=== PATIENT | female | born 1980 | race Hispanic/Latino ===

== ENCOUNTER 2016-07-02 20:33 | Emergency (ER) | payer OTHER ==
[~2016-07-02] VITALS: Ht 152.4 cm; Wt 56.8 kg
[~2016-07-02 20:33] MED LIST: FES300 PO; PREN1TAB69 PO
[2016-07-02 20:38] VITALS: BP 122/79; PULSE 105; RESP 16; O2SAT 99
[2016-07-02] MEDS ORDERED: OMEP20CA11 PO (20:46)
[2016-07-02] MEDS ORDERED: 0.9% Sodium Chloride 1,000 ML IV ONE ×2 (20:56→21:40)
[2016-07-02] MEDS ORDERED: Ondansetron 2 mg/mL 2 mL Inj IVPUSH ONE (21:00)
[2016-07-02 21:19] LABS: BASOPHILS % (AUTO) 0.2 % (0-3); EOSINOPHILS % (AUTO) 0.2 % (0-5); MONOCYTES % (AUTO) 5.1 % (4-12); Mean Corpuscular Hemoglobin 30.6 pg (27.0-35.0); Mean Corpuscular Volume 91.4 fL (81-100); NEUTROPHILS % (AUTO) 89.9 % (40-74); Platelet Count 189 bil/L (150-400)
[2016-07-02 21:24] LABS: APPEARANCE,URINE HAZY (CLEAR,HAZY); COLOR,URINE YELLOW (YELLOW); PH,URINE 5.5 (5.0-8.0)
[2016-07-02 21:25] LABS: OCCULT BLOOD,URINE MODERATE (NEGATIVE); UROBILINOGEN,URINE NORMAL (NORMAL)
--- NOTE | 2016-07-02 21:39 | ED.REPORT ---
HPI-Abd Pain F Under 42 Date of Service Jul 02, 2016 ED Provider: Fran Snowden MD Pt is a healthy 36 y/o female presenting to the ED c/o constant diffuse cramping abdominal pain and persistent diarrhea onset this morning. She c/o associated chills. Pt denies bloody stool, fever, CP, SOB, nausea, vomiting. Her pain is not exacerbated or relieved by anything. Patient states that she has had contacts at work with similar illnesses. She reports a lot of stress recently due to being involved in a divorce. Nursing Notes Stated Complaint: DIARRHEA Chief Complaint: Female Abdominal Pain Nursing Notes Reviewed: Yes Allergies: Coded Allergies: No Known Allergies (Verified , 07/02/16) Scheduled Loperamide (Loperamide) 2 Mg Capsule 2 MG PO Q4H Omeprazole (Omeprazole) 20 Mg Capsule.dr 20 MG PO DAILY Scheduled PRN Ondansetron ODT (Zofran ODT) 4 Mg Tablet 4 MG PO Q4H PRN PRN For Nausea General Time Seen by MD: 20:56 Chief Complaint Abdominal pain, Diarrhea moderate Hx Obtained From: Patient Arrived By: Walk-in Sudden in Onset?: No Onset Occurred: 5 - 8 hours ago Symptom Duration: Since onset Progression since Onset: Constant Location: : Diffuse Quality: Cramping Radiation: : Does not radiate Severity: Current: Mild Severity: Maximum: Moderate Similar Sx Previous: No Past Medical History Past Medical History Healthy Past Surgical History Denies Smoking History Unknown if Ever Smoker Ambulatory Status Independent Review of Systems Constitutional: Denies: Chills, Fever Respiratory: Denies: Non-productive cough, Shortness of breath Cardiovascular: Denies: Chest pain, Dyspnea on exertion GI: Reports: Abdominal pain, Diarrhea, Denies: Bloody/tarry stool, Hematochezia, Nausea, Vomiting Complete sys rev & neg: except as marked. Physical Exam Initial Vital Signs Vital Signs (First) Date Time Temp Pulse Resp B/P Pulse Ox O2 Delivery O2 Flow Rate FiO2 07/02/16 20:38 36.4 105 16 122/79 99 Room Air Initial VS: Reviewed Head / Eyes: Atraumatic, Normocephalic, PERRL Neck: Supple, Full range of motion Extremities: Vascular intact, Neuro intact, No swelling, No tenderness Skin: Warm, Dry, No cyanosis Neurologic: Alert, Oriented, Nonfocal Psychiatric: Mood/affect normal, Behavior normal, Normal thought content General/Constitutional: Awake, Alert, No acute distress, Cooperative, Not toxic appearing Respiratory / Chest: Atraumatic, Breath sounds NL, Breath sounds = bilat, No respiratory distress, No rales, No rhonchi, No wheezing, No retractions, No stridor, No chest tenderness, No chest wall deformity, No crepitus Cardiovascular: Heart rate NL, Regular rhythm, Heart sounds NL, No gallop, No murmurs, No rubs, Cap refill not delayed, Peripheral circulation NL Abdomen: Atraumatic, Soft, Non-tender, No guarding, No rebound, No distention, No palpable mass Back: Full range of motion, Painless range of motion ENT: Atraumatic, Airway patent Mouth: Positive: Mucous membranes dry Interpretation & Diagnostics Lab Results Interpretation Result Diagram: 07/02/16210407/02/162104 Test 07/02/16 21:02 07/02/16 21:05 Urine Color Yellow (YELLOW) Urine Appearance Hazy (CLEAR,HAZY) Urine pH 5.5 (5.0-8.0) Urine Specific [place] 1.030 (1.003-1.035) Urine Protein Negativemg/dL (NEG,TRACE) Urine Glucose (UA) Negativemg/dL (NEGATIVE) Urine Ketones 40mg/dL (NEGATIVE) Urine Occult Blood Moderate (NEGATIVE) Urine Nitrite Negative (NEGATIVE) Urine Bilirubin Negative (NEGATIVE) Urine Urobilinogen Normalmg/dL (NORMAL) Urine Leukocyte Esterase Negative (NEGATIVE) Urine RBC 0-2/hpf (0-2) Urine WBC 0-5/hpf (0-5) Urine Epithelial Cells Few/hpf (NONE-MOD) Urine Crystals None seen (NONE SEEN) Urine Bacteria Few/hpf (NONE-FEW) Urine Hyaline Casts None/lpf (NONE) Urine Granular Casts None seen (NONE SEEN) Urine Waxy Casts None seen (NONE SEEN) Urine Red Blood Cell Casts None seen (NONE SEEN) Urine White Blood Cell Casts None seen (NONE SEEN) Urine Mucus Present (None Seen) Urine Trichomonas None seen (NONE SEEN) Urine Yeast None (NONE SEEN) Urinalysis Comment None Urine Culture Reflexed Not indicated Hold Urine Received (Received) White Blood Count 11.7th/mm3 (3.8-10.1) Red Blood Count 4.54mil/mm3 (3.90-5.20) Hemoglobin 13.9g/dL (12.0-15.6) Hematocrit 41.5% (35.0-46.0) Mean Corpuscular Volume 91.4fL (81-100) Mean Corpuscular Hemoglobin 30.6pg (27.0-35.0) Mean Corpuscular Hemoglobin Concent 33.5% (32.0-37.0) Red Cell Distribution Width 12.7% (12.3-15.4) Platelet Count 189bil/L (150-400) Neutrophils (%) (Auto) 89.9% (40-74) Lymphocytes (%) (Auto) 4.3% (14-46) Monocytes (%) (Auto) 5.1% (4-12) Eosinophils (%) (Auto) 0.2% (0-5) Basophils (%) (Auto) 0.2% (0-3) Sodium Level 136mEq/L (134-144) Potassium Level 3.8mEq/L (3.5-5.2) Chloride Level 100mEq/L (97-108) Carbon Dioxide Level 19mmol/L (18-29) Blood Urea Nitrogen 14mg/dL (6-20) Creatinine 0.58mg/dL (0.57-1.00) Estimat Glomerular Filtration Rate 170mL/min (>59) Glucose Level 112mg/dL (60-99) Calcium Level 9.4mg/dL (8.5-10.1) Magnesium Level 2.1mg/dL (1.6-2.6) Total Bilirubin 0.5mg/dL (0.0-1.2) Aspartate Amino Transf (AST/SGOT) 28U/L (0-50) Alanine Aminotransferase (ALT/SGPT) 18U/L (0-32) Alkaline Phosphatase 68U/L (25-150) Total Protein 7.9g/dL (6.4-8.4) Albumin 5.0g/dL (3.4-5.0) Lipase 40U/L (13-60) Hold [place]ak[place] Top Tube Received (Received) Re-Eval/Medical Decision Med Decision/Clinical Course Pt is a healthy 36 y/o female presenting to the ED c/o constant diffuse cramping abdominal pain and persistent diarrhea onset this morning. She c/o associated chills. Pt denies bloody stool, fever, CP, SOB, nausea, vomiting. Her pain is not exacerbated or relieved by anything. Patient states that she has had contacts at work with similar illnesses. She reports a lot of stress recently due to being involved in a divorce. Here in the emergency department the patient was briefly febrile with a temperature of 30 80 otherwise hemodynamically stable and afebrile. Abdominal examination was benign. Meds given: Ibuprofen, Zofran, IV fluids, Loperamide, 0.5 mg IV Ativan Thereafter patient reported complete symptom resolution. Labs notable as below: Upreg: neg CBC: Leukocytosis of 11.7 otherwise unremarkable CMP: Unremarkable UA: unconvincing for UTI Overall presentation was consistent with gastroenteritis. No evidence of bacterial process. No findings suggestive of acute surgical intra-abdominal process. I do not feel that imaging studies are indicated. Symptoms have now been well-controlled. Patient will be discharged with a prescription for loperamide and Zofran. Follow and return precautions were reviewed in detail and she was discharged in good condition. Re-Evaluation/Progress : Time of Eval: 22:05 Patient Status: Mild relief Re-Evaluation/Progress Note: Pt rechecked. Informed pt of plan for treatment. Pt understands and agrees with plan for treatment. F/U instructions and RTER warnings given. All questions addressed. Counseled Regarding: Diagnosis, Lab results, Need for follow-up, When/why to return to ED Discharge & Departure Primary Impression: Gastroenteritis Additional Impressions: Diarrhea Dehydration Acute situational disturbance Leukocytosis Leukocytosis type: unspecified Qualified Code: D72.829 - Elevated white blood cell count, unspecified Disposition: Home Discharge Condition All VS Reviewed: Yes Condition: Stable Patient Instructions: Acute Diarrhea (ED), Gastroenteritis (ED) Additional Instructions: Thank you for seeking care at emergency room. It is difficult for us to make definitive diagnoses in the ED but we believe that you are experiencing gastroenteritis. Our primary goal today in the ED was to evaluate you for any life-threatening conditions. Your evaluation was reassuring. You will be discharged with a prescription for Zofran for nausea and loperamide for diarrhea. You should follow-up with your primary doctor in the next week. You should return to the ED immediately if you develop worsening symptoms, fevers, vomiting, cough, shortness of breath, chest pain, lightheadedness, weakness or any other concerning signs or symptoms. Thank you for letting us partake in your care today. Referrals: Mirna De Leon (PCP) Scribe Attestation Portions of this note were transcribed by Tim Brooke. I, Dr. Snowden personally performed the history, physical exam and medical decision-making; I reviewed and confirmed the accuracy of the information in the transcribed note. Signed by Link Chavarria, 07/02/162199 copies to: Mirna De Leon Beck O MD Jul 02, 2016 21:39 TIM BROOKE Jul 02, 2016 21:42
[2016-07-02] MEDS ORDERED: LOPE2CAP PO (21:43)
[2016-07-02] MEDS ORDERED: ONDA4TAB9 PO (21:43)
[2016-07-02 21:47] LABS: Magnesium 2.1 mg/dL (1.6-2.6)
[2016-07-02 23:45] VITALS: BP 99/59; PULSE 102; RESP 14; O2SAT 96
[2016-07-03 00:17] VITALS: BP 94/55; PULSE 98; O2SAT 99
[2016-07-03 00:24] VITALS: BP 99/59; PULSE 98; RESP 14; O2SAT 99
== END 2016-07-03 00:25 | disposition home or self-care (01) ==
LOC: SED 20:33
DX: K52.9 Noninfective gastroenteritis and colitis, unspecified (principal); F43.0 Acute stress reaction; D72.829 Elevated white blood cell count, unspecified; E86.0 Dehydration
CPT/HCPCS: 36415; 80053; 81000; 81025; 83690; 83735; 85025; 96361; 96374; 96375; 99284; J2060; J2405; J7030